=== PATIENT | female | born 1965 | race African-American/Black ===

== ENCOUNTER 2017-12-28 10:57 | Emergency (ER) | payer BC ==
[~2017-12-28] VITALS: Ht 154.9 cm; Wt 61.5 kg
[2017-12-28 12:06] LABS: HEMATOCRIT 22.1 % (36.0-46.0); HEMOGLOBIN 7.1 G/DL (11.9-15.5); MCH 30.2 PG (29.0-34.0); MCHC 32.1 G/DL (30.0-36.0); NRBC (%) 0.4 /100 WBC (0-0); PLATELET COUNT 463 K/uL (156-360); RBC DIS.WIDTH-CV 15.9 % (11.8-14.6); RBC DIS.WIDTH-SD 54.1 % (39-53); RED BLOOD COUNT 2.35 M/uL (3.80-5.20); WHITE BLOOD COUNT 9.9 K/uL (4.1-10.2)
[2017-12-28 12:14] LABS: D-DIMER ELISA < 150.00 ng/mLDDU (<230)
[2017-12-28 12:17] LABS: CHLORIDE 109 mEq/L (99-109); POTASSIUM 3.8 mEq/L (3.7-5.4); SODIUM 142 mEq/L (136-147)
[2017-12-28 12:19] LABS: GLUCOSE 98 mg/dL (70-99)
[2017-12-28 12:23] LABS: CREATININE 0.8 mg/dL (0.6-1.3); GFR ESTIMATE (CALCULATED) > 59 mL/min/
[2017-12-28 12:24] LABS: UREA NITROGEN (BUN) 16 mg/dL (9-23)
[2017-12-28 12:28] LABS: TROP-I INTERPRETATION NEGATIVE; TROPONIN-I < 0.01 ng/mL (0.0-0.30)
[2017-12-28 12:29] LABS: LIPASE 62 U/L (1.0-51.0)
[2017-12-28] MEDS ORDERED: PRILOSEC20 MG PO (15:08)
[2017-12-28 16:35] VITALS: BP 159/90
== END 2017-12-28 16:36 | disposition home or self-care (01) ==
LOC: EME 10:57
PROVIDERS: Family Medicine
DX: R07.9 Chest pain, unspecified (principal); D64.9 Anemia, unspecified; R06.02 Shortness of breath; R10.10 Upper abdominal pain, unspecified; R00.0 Tachycardia, unspecified
CPT/HCPCS: 71046; 80048; 83690; 84484; 85027; 85379; 93005; 99281; 99285; J2405; J7040

== ENCOUNTER → 2018-01-31 | Outpatient (CLI) | payer BC ==
[~2018-01-31] MED LIST: PRILOSEC20 MG PO
== END | disposition home or self-care (01) ==
LOC: EKG 12:28
DX: I07.1 Rheumatic tricuspid insufficiency (principal); I27.20 Pulmonary hypertension, unspecified; I05.1 Rheumatic mitral insufficiency
CPT/HCPCS: 93306